=== PATIENT | male | born 1995 | race Caucasian/White ===

== ENCOUNTER 2018-06-21 21:44 | Emergency (ER) | payer SELFPAY ==
[2018-06-21] MEDS ORDERED: Adacel (T-DAP) 0.5 ML SYRINGE ONE (22:27)
[2018-06-21] MEDS ORDERED: Lidocaine 1% w/Epinephrine 1:100K 20 ML VIAL ONE (22:50)
--- NOTE | 2018-06-21 22:51 | RAD ---
RIGHT HAND THREE VIEW 06/21/18 HISTORY: Dog bite to the palm. COMPARISON: None. FINDINGS: There is a palmar soft tissue laceration of the hand. No fracture. No radiopaque foreign object is ap preciated. IMPRESSION: Soft tissue laceration with gas. No acute fracture. POS: [facility]
[2018-06-21] MEDS ORDERED: Rabies Vaccine Human 2.5 UNITS VIAL IM ONE (23:15)
[2018-06-21] MEDS ORDERED: Bacitracin Zinc 1 Packet ONE (23:32)
== END 2018-06-22 00:05 | disposition home or self-care (01) ==
LOC: ERS 21:44
DX: S61.451A Open bite of right hand, initial encounter (principal); F41.9 Anxiety disorder, unspecified; F32.9 Major depressive disorder, single episode, unspecified; E11.9 Type 2 diabetes mellitus without complications; W54.0XXA Bitten by dog, initial encounter
CPT/HCPCS: 12002; 90471; 90472; 90675; 90715; J2001

== ENCOUNTER 2018-07-03 18:48 | Emergency (ER) | payer SELFPAY | END 2018-07-03 19:06 | disposition home or self-care (01) | LOC: ERS 18:48 | DX: S61.411D Laceration without foreign body of right hand, subsequent encounter (principal); E11.9 Type 2 diabetes mellitus without complications; F32.9 Major depressive disorder, single episode, unspecified; F41.9 Anxiety disorder, unspecified ==